=== PATIENT | male | born 1990 | race Caucasian/White ===

== ENCOUNTER 2020-09-16 18:18 | Emergency (ER) | payer OTHER ==
[~2020-09-16] VITALS: Ht 177.8 cm; Wt 95.3 kg
[2020-09-16] MEDS ORDERED: VENTOLIN HFA INH8 GM INH (19:19)
[2020-09-16] MEDS ORDERED: PREDNISONE50 MG PO (20:32)
[2020-09-16] MEDS ORDERED: ALBUTEROL2.5 MG/31 INH (20:32)
[2020-09-16] MEDS ORDERED: PROAIR HFA8.5 GM INH (20:32)
[2020-09-16] MEDS ORDERED: ADVAIR 250-501 EACH INH (20:32)
[2020-09-16 20:44] VITALS: BP 120/65
== END 2020-09-16 20:45 | disposition still patient (30) ==
LOC: M.ERS 18:18
DX: J45.901 Unspecified asthma with (acute) exacerbation (principal); Z20.828 Contact with and (suspected) exposure to other viral communicable diseases